=== PATIENT | male | born 1995 | race African-American/Black ===

== ENCOUNTER → 2021-06-25 | Outpatient (CLI) | payer OTHER ==
--- NOTE | 2021-06-25 16:31 | XR ---
EXAMINATION TYPE: XR hand complete RT DATE OF EXAM: 06/25/2021 COMPARISON: None HISTORY: struck hand on plastic pin, pain TECHNIQUE: 3 view right hand FINDINGS: Joint spaces are preserved. No acute fractures or dislocations are evident. The soft tissue s are normal. Follow up exams can be performed 7-10 days from acute trauma for continued pain. IMPRESSION: 1. Normal 3 view right hand
--- NOTE | 2021-06-25 16:32 | XR ---
EXAMINATION TYPE: XR wrist complete RT DATE OF EXAM: 06/25/2021 COMPARISON: None HISTORY: Struck hand on plastic bending, pain TECHNIQUE: 3 view right wrist FINDINGS: Joint spaces are preserved. No acute fracture or dislocation is evident. The soft tissues a re normal. If there is pain at the anatomic snuff box, nuclear medicine bone scan could BE performed for additio nal evaluation. Follow up exams can be performed 7-10 days of the wrist with a hand for continued isabella n. IMPRESSION: 1. Normal 3 view right wrist
== END | disposition home or self-care (01) ==
LOC: RADXRMAIN 16:03
PROVIDERS: ATTEND Emergency Medicine
DX: S60.221A Contusion of right hand, initial encounter (principal); M25.531 Pain in right wrist; X58.XXXA Exposure to other specified factors, initial encounter

== ENCOUNTER → 2021-07-06 | Outpatient (CLI) | payer OTHER ==
--- NOTE | 2021-07-06 09:50 | XR ---
Right hand HISTORY: Trauma and pain 3 views of the right hand, correlation to prior right hand and wrist dated 06/25/2021 Bone mineralization, joint spaces are maintained. There is some volar angulation of the distal fifth metacarpal, cortical irregularity is noted on the volar aspect seen on the oblique view. There is sof t tissue swelling present. Punctate metallic density present within soft tissues of the volar aspect of the distal second digit consistent with foreign body. IMPRESSION: Findings suggest nondisplaced fracture of the fifth metacarpal, correlate for tenderness.
== END | disposition home or self-care (01) ==
LOC: RADXRMAIN 08:48
PROVIDERS: ATTEND Emergency Medicine
DX: S60.221A Contusion of right hand, initial encounter (principal); X58.XXXA Exposure to other specified factors, initial encounter